=== PATIENT | male | born 1985 | race Caucasian/White ===

== ENCOUNTER 2023-08-16 22:00 | Emergency (ER) | payer MEDICAID ==
[~2023-08-16] VITALS: Ht 160 cm; Wt 109.0 kg
[2023-08-16 22:22] VITALS: BP 138/89; PULSE 113; RESP 17; TEMP 98.3; O2SAT 96
[2023-08-16] MEDS: ACETAMINOPHEN 325MG TABLET PO ONE (22:55)
== END 2023-08-16 23:45 | disposition home or self-care (01) ==
LOC: ER 22:00
DX: F15.90 Other stimulant use, unspecified, uncomplicated (principal); M79.642 Pain in left hand
CPT/HCPCS: 99281